=== PATIENT | female | born 1960 ===

== ENCOUNTER 2017-07-22 12:38 | Emergency (ER) | payer OTHER ==
[2017-07-22] MEDS ORDERED: Dexamethasone 10 MG in Sodium Chloride 0.9% 50 ML IV ONE (13:30)
[2017-07-22] MEDS ORDERED: Sodium Chloride 0.9% 1,000 ML IV STA (13:30)
--- NOTE | 2017-07-22 13:34 | ED PDOC ---
HPI: General Adult Time Seen by Provider: 07/22/17 13:03 Chief Complaint (Nursing): ENT Problem Chief Complaint (Provider): Neck mass History Per: Patient History/Exam Limitations: no limitations Onset/Duration Of Symptoms: Days (1 month) Have you had recent travel within the past 21 days to any of the following countries: [place], [place], [place] or [place]?: No Additional Complaint(s): Pt. with right neck pain and mass. [place] for 1 month. No cough, congestion, runny nose, headaches, dizziness, weakness. No sore throat. abd pain, chest pain, dyspnea. No fever. No nausea, vomit. Past Medical History Reviewed: Nursing Documentation, Vital Signs Vital Signs: Last Vital Signs Temp 98.0 F 07/22/17 12:42 Pulse 85 07/22/17 12:42 Resp 16 07/22/17 12:42 BP 181/99 H 07/22/17 12:42 Pulse Ox 100 07/22/17 13:35 - Medical History PMH: HTN - Surgical History Surgical History: Cholecystectomy (as a teenager) - Family History Family History: States: Unknown Family Hx - Living Arrangements Living Arrangements: With Family - Social History Current smoker - smoking cessation education provided: No Alcohol: None Drugs: Denies - Allergies Allergies/Adverse Reactions: Allergies Allergy/AdvReac Type Severity Reaction Status Date / Time No Known Allergies Allergy Verified 07/22/17 12:41 Review of Systems ROS Statement: Except As Marked, All Systems Reviewed And Found Negative Musculoskeletal: Positive for: Neck Pain Physical Exam - Reviewed Nursing Documentation Reviewed: Yes Vital Signs Reviewed: Yes - Physical Exam Appears: Positive for: Non-toxic, No Acute Distress Head Exam: Positive for: ATRAUMATIC, NORMAL INSPECTION, NORMOCEPHALIC Skin: Positive for: Normal Color, Warm, DRY Eye Exam: Positive for: EOMI, Normal appearance, PERRL ENT: Positive for: Normal ENT Inspection. Negative for: Nasal Congestion, Pharyngeal Erythema, Tonsillar Exudate Neck: Positive for: Painless ROM. Negative for: Normal (R neck with 5cm diameter mass; not fluctuanct; not erythematous. Tender.) Cardiovascular/Chest: Positive for: Regular Rate, Rhythm Respiratory: Positive for: CNT, Normal Breath Sounds Gastrointestinal/Abdominal: Positive for: Normal Exam, Bowel Sounds, Soft. Negative for: Tenderness Back: Positive for: Normal Inspection. Negative for: L CVA Tenderness, R CVA Tenderness Extremity: Positive for: Normal ROM. Negative for: Tenderness, Pedal Edema Neurologic/Psych: Positive for: Alert, banking specialist II-XII, Oriented. Negative for: Motor/Sensory Deficits - Laboratory Results Result Diagrams: 07/22/17 13:55 07/22/17 13:55 - ECG O2 Sat by Pulse Oximetry: 100 Pulse Ox Interpretation: Normal - Progress ED Course And Treament: 1500: Stable. Dr. Mims to take over care. Fu on CT and TSH. Disposition - Clinical Impression Clinical Impression: Neck mass - Patient ED Disposition Is Patient to be Admitted: No - Disposition Disposition: Transfer of Care Disposition Time: 15:00 Condition: FAIR Patient Signed Over To: Carrie Mims
[2017-07-22 14:08] LABS: BASO % 0.7 % (0.0-2.0); EOS # 0.1 K/uL (0.0-0.7); HEMOGLOBIN 13.7 g/dL (12.0-16.0); LYMPH # 2.5 K/uL (1.0-4.3); LYMPH % 37.9 % (20.0-40.0); MEAN CELL VOLUME 93.5 fl (81.0-99.0); MEAN CORPUSCULAR HEMOGLOBIN 30.5 pg (27.0-31.0); MEAN CORPUSCULAR HGB CONC 32.6 g/dL (33.0-37.0); MEAN PLATELET VOLUME 7.7 fl (7.2-11.7); MONO # 0.6 K/uL (0.0-0.8); NEUT # 3.2 K/uL (1.8-7.0); NEUT % 49.4 % (50.0-75.0); NRBC % 0.2 % (0.0-0.0); RBC 4.48 Mil/uL (3.80-5.20); RED CELL DISTRIBUTION WIDTH 13.1 % (11.5-14.5); WHITE BLOOD COUNT 6.5 K/uL (4.8-10.8)
[2017-07-22] MEDS ORDERED: Iohexol 300 100 ML IJ ONE (14:20)
[2017-07-22] MEDS ORDERED: Sodium Chloride 0.9% 50 ML IV ONE (14:20)
[2017-07-22 14:30] LABS: ALBUMIN 4.4 g/dL (3.5-5.0); ALT/SGPT 55 U/L (9-52); AST/SGOT 34 U/L (14-36); BLOOD UREA NITROGEN 12 mg/dl (7-17); GFR AFRICAN-AMERICAN > 60; GFR NON-AFRICAN AMERICAN > 60
--- NOTE | 2017-07-22 16:42 | CT ---
PROCEDURE: CT NECK WITH CONTRAST HISTORY: pain neck with lump R COMPARISON: None TECHNIQUE: CT of the neck with intravenous contrast. Coronal and sagittal reformats generated. Intravenous contrast dose: 90 of Omnipaque Radiation dose: DLP 638 mGy-cm This CT exam was performed using one or more of the following dose reduction techniques: Automated exposure control, adjustment of the mA and/or kV according to patient size, and/or use of iterative reconstruction technique. FINDINGS: NASOPHARYNX: Visualized nasopharynx is unremarkable without adenopathy or mass. SUPRAHYOID NECK: Oral pharynx and tongue base region are unremarkable. INFRAHYOID NECK: Portions of the pharynx and glottis are displaced to the left by a large multi septated right lobe thyroid mass. Glottis and epiglottic regions are otherwise unremarkable. MASS: There is an extremely enlarged right lobe low-density thyroid mass with septation. In addition there are other septated areas of mass low density seen in the upper pole of the right lobe of the thyroid gland. The large right lobe thyroid mass extends into the right thoracic inlet region. This measures 5.1 centimeters x 4.4 centimeters by 4.3 centimeters. Left lobe of thyroid gland is otherwise unremarkable as well as the isthmus. The goiter also displaces the trachea and the esophagus to the left. A few small thoracic inlet lymph nodes are noted and a few small right neck lymph nodes are seen. Visualized aorta is unremarkable. Visualized lungs are within normal limits. Degenerative changes are seen in the spine with multilevel degenerative disc disease noted. GLANDS: Parotid and submandibular glands unremarkable. See above for thyroid gland LYMPH NODES: Small neck lymph nodes. No abscess. A few small submental lymph nodes are seen. CERVICAL SPINE: See above VASCULAR STRUCTURES: Unremarkable. OTHER FINDINGS: None. IMPRESSION: Extremely large low-density right lobe thyroid nodule and goiter with displacement of the adjacent structures and some extension into the right thoracic inlet region. Additional low-density goiter in the upper pole of the right lobe. A few small adjacent lymph nodes are seen in the right neck region.
--- NOTE | 2017-07-22 17:14 | ED PDOC ---
- Laboratory Results Result Diagrams: 07/22/17 13:55 07/22/17 13:55 - ECG O2 Sat by Pulse Oximetry: 100 Pulse Ox Interpretation: Normal - Physician Consult Information Time Consulting Physican Contacted: 17:10 Physician Contacted: Jayro Lewis Outcome Of Conversation: Can follow-up in office and will refer as needed. Medical Decision Making Medical Decision Making: Accession No. : [id number] Patient Name / ID : JAYY GUAMAN / [id number] Exam Date : 07/22/2017 16:01:38 ( Approved ) Study Comment : Sex / Age : F / 57Y Creator : Jus Lazaro MD Dictator : Jus Lazaro MD Slasher Hand : Clipper Machine Operator : Jus Lazaro MD Approver2 : Report Date : 07/22/2017 16:41:09 My Comment : PROCEDURE: CT NECK WITH CONTRAST HISTORY: pain neck with lump R COMPARISON: None TECHNIQUE: CT of the neck with intravenous contrast. Coronal and sagittal reformats generated. Intravenous contrast dose: 90 of Omnipaque Radiation dose: DLP 638 mGy-cm This CT exam was performed using one or more of the following dose reduction techniques: Automated exposure control, adjustment of the mA and/or kV according to patient size, and/or use of iterative reconstruction technique. FINDINGS: NASOPHARYNX: Visualized nasopharynx is unremarkable without adenopathy or mass. SUPRAHYOID NECK: Oral pharynx and tongue base region are unremarkable. INFRAHYOID NECK: Portions of the pharynx and glottis are displaced to the left by a large multi septated right lobe thyroid mass. Glottis and epiglottic regions are otherwise unremarkable. MASS: There is an extremely enlarged right lobe low-density thyroid mass with septation. In addition there are other septated areas of mass low density seen in the upper pole of the right lobe of the thyroid gland. The large right lobe thyroid mass extends into the right thoracic inlet region. This measures 5.1 centimeters x 4.4 centimeters by 4.3 centimeters. Left lobe of thyroid gland is otherwise unremarkable as well as the isthmus. The goiter also displaces the trachea and the esophagus to the left. A few small thoracic inlet lymph nodes are noted and a few small right neck lymph nodes are seen. Visualized aorta is unremarkable. Visualized lungs are within normal limits. Degenerative changes are seen in the spine with multilevel degenerative disc disease noted. GLANDS: Parotid and submandibular glands unremarkable. See above for thyroid gland LYMPH NODES: Small neck lymph nodes. No abscess. A few small submental lymph nodes are seen. CERVICAL SPINE: See above VASCULAR STRUCTURES: Unremarkable. OTHER FINDINGS: None. IMPRESSION: Extremely large low-density right lobe thyroid nodule and goiter with displacement of the adjacent structures and some extension into the right thoracic inlet region. Additional low-density goiter in the upper pole of the right lobe. A few small adjacent lymph nodes are seen in the right neck region. CT report noted. Pt examined, comfortable, speaking full sentences, no drooling. Findings discussed with patient and son using home planning consultant salesperson, expressed verbal understanding. Disposition - Clinical Impression Clinical Impression: Goiter - POA Present On Arrival: None - Disposition Referrals: Jayro Lewis MD [Staff Provider] - Janny Valdes MD [Medical Doctor] - Disposition: Routine/Home Disposition Time: 17:16 Condition: STABLE Instructions: Thyroid Goiter (ED), Thyroid Nodules (ED) Forms: [employer] ([place]er) Print Language: BAHRAINI Addendum Addendum: 07/22/17 15:[address] Pt signed out by Dr. Phelps pending CT.
[2017-07-22 17:26] VITALS: BP 151/99; PULSE 89; TEMP 98.1
[2017-07-22 17:30] VITALS: RESP 16
[2017-07-22 19:49] VITALS: O2SAT 100
== END 2017-07-22 17:27 | disposition home or self-care (01) ==
LOC: H.ER 12:38
DX: E04.1 Nontoxic single thyroid nodule (principal); I10 Essential (primary) hypertension
CPT/HCPCS: 70491; 80053; 82330; 84439; 84443; 85025; 96361; 96374; 96375; 99285; J1100; J1885; J7040; Q9967